=== PATIENT | male | born 1955 | race Caucasian/White ===

== ENCOUNTER → 2016-12-12 | Day surgery (SDC) | payer MEDICARE ==
[~2016-12-12] MED LIST: ASPIRIN CHEWABL81 MG PO; AVAPRO75 MG PO; BYETTA 1010 MCG/2.4 SQ; CARDIZEM30 MG PO; CLARITIN10 MG PO; FERROUS SULFAT325 MG PO; FISH OIL 1,0001 EAC1 PO; FLOMAX 0.4 MG0.4 MG PO; FLONASE ALLER15.8 ML; GLIMEPIRIDE2 MG PO; GLUCOPHAGE 500500 MG PO; LANOXIN TAB 00.25 MG PO; MAGNESIUM400 MG PO; MULTIVITAMINS1 EAC1 PO; NEURONTIN 400400 MG PO; PRILOSEC OTC20 MG PO; SEROQUEL200 MG PO; SINGULAIR10 MG PO; SPIRIVA18 MCG INH; SYMBICORT 160-1 INHA INH; SYNTHROID50 MCG PO; TENORMIN 50 MG50 MG PO; VENTOLIN HFA INH; VOLTAREN EC 7575 MG PO; ZOCOR20 MG PO
== END | disposition home or self-care (01) ==
LOC: OR 06:44
PROVIDERS: Internal Medicine Gastroenterology
PROC: 0DB78ZX Excision of Stomach, Pylorus, Via Natural or Artificial Opening Endoscopic, Diagnostic (ICD-10-PCS; 2016-12-12)
PROC: 0DB98ZX Excision of Duodenum, Via Natural or Artificial Opening Endoscopic, Diagnostic (ICD-10-PCS; principal; 2016-12-12 11:00)
DX: K29.00 Acute gastritis without bleeding (principal); D50.0 Iron deficiency anemia secondary to blood loss (chronic); E11.9 Type 2 diabetes mellitus without complications; J44.9 Chronic obstructive pulmonary disease, unspecified; G47.30 Sleep apnea, unspecified; F17.210 Nicotine dependence, cigarettes, uncomplicated; Z87.442 Personal history of urinary calculi; Z80.0 Family history of malignant neoplasm of digestive organs; Z79.82 Long term (current) use of aspirin; Z79.84 Long term (current) use of oral hypoglycemic drugs; Z79.899 Other long term (current) drug therapy
CPT/HCPCS: 82962; J2250; J3010; J7030

== ENCOUNTER 2021-05-16 16:20 | Emergency (ER) | payer OTHER ==
[2021-05-16 17:31] LABS: HEMOGLOBIN 12.5 gm/dl (14.0-17.5); RED BLOOD COUNT 4.14 M/UL (4.20-5.50); WHITE BLOOD COUNT 11.3 K/UL (4.5-11.0)
[2021-05-16 17:50] LABS: BUN/CREATININE RATIO 11 (0-10)
== END 2021-05-16 23:00 | disposition home or self-care (01) ==
LOC: ER1 16:20
PROVIDERS: Physician Assistant
DX: E83.42 Hypomagnesemia (principal); J44.9 Chronic obstructive pulmonary disease, unspecified; E11.9 Type 2 diabetes mellitus without complications; F41.9 Anxiety disorder, unspecified; F17.210 Nicotine dependence, cigarettes, uncomplicated; Z87.442 Personal history of urinary calculi
CPT/HCPCS: 80053; 83735; 85025; 93005; 99283

== ENCOUNTER 2021-05-17 10:13 | Emergency (ER) | payer OTHER ==
[2021-05-17 12:12] LABS: BUN/CREATININE RATIO 10 (0-10)
== END 2021-05-17 21:45 | disposition left against medical advice (07) ==
LOC: ER1 10:13
PROVIDERS: Emergency Medicine
DX: E83.42 Hypomagnesemia (principal); I51.9 Heart disease, unspecified; J44.9 Chronic obstructive pulmonary disease, unspecified; Z87.442 Personal history of urinary calculi; E11.9 Type 2 diabetes mellitus without complications; F17.200 Nicotine dependence, unspecified, uncomplicated
CPT/HCPCS: 80053; 83735; 93005; 96374; 96376; 99283; J3475

== ENCOUNTER → 2021-06-27 | Day surgery (SDC) | payer OTHER ==
[~2021-06-27] MED LIST changes: +ACETAMINOPHEN-1 EAC1 PO; +ATORVASTATIN CA20 MG PO; +CYCLOBENZAPRINE10 MG PO; +DONEPEZIL HCL OD5 MG PO; +KEPPRA PO; +LOPRESSOR50 MG PO; +TRULICITY0.75 MG/0. SQ
== END | disposition home or self-care (01) ==
LOC: OR 06:20
DX: R19.7 Diarrhea, unspecified (principal); D12.2 Benign neoplasm of ascending colon; D12.5 Benign neoplasm of sigmoid colon; D12.8 Benign neoplasm of rectum; K64.0 First degree hemorrhoids; K64.1 Second degree hemorrhoids; I10 Essential (primary) hypertension; K64.4 Residual hemorrhoidal skin tags; J45.909 Unspecified asthma, uncomplicated; J44.9 Chronic obstructive pulmonary disease, unspecified; E11.9 Type 2 diabetes mellitus without complications; Z86.010 Personal history of colon polyps; Z72.0 Tobacco use; Z80.0 Family history of malignant neoplasm of digestive organs; Z20.822 Contact with and (suspected) exposure to COVID-19
CPT/HCPCS: 82962; J2001; J2704; J7040

== ENCOUNTER → 2022-01-03 | Outpatient (CLI) | payer OTHER | LOC: KOH-I 12:52 | DX: R09.89 Other specified symptoms and signs involving the circulatory and respiratory systems (principal); I65.23 Occlusion and stenosis of bilateral carotid arteries | CPT/HCPCS: 93880 ==